=== PATIENT | male | born 1965 | race Caucasian/White ===

== ENCOUNTER 2017-06-13 20:39 | Emergency (ER) | payer OTHER ==
[~2017-06-13] VITALS: Ht 170.2 cm; Wt 83.9 kg
[2017-06-13] MEDS ORDERED: PAIN RELIEVER500 M3 PO (21:12)
[2017-06-13] MEDS ORDERED: NAPROSYN500 MG PO (21:50)
[2017-06-13] MEDS ORDERED: NORCO 5-325 TA1 EACH PO (21:52)
[2017-06-13 22:38] VITALS: BP 180/104
== END 2017-06-13 22:38 | disposition home or self-care (01) ==
LOC: ER 20:39
DX: M25.531 Pain in right wrist (principal); F10.99 Alcohol use, unspecified with unspecified alcohol-induced disorder

== ENCOUNTER 2019-02-10 08:33 | Emergency (ER) | payer OTHER ==
[~2019-02-10] VITALS: Ht 170.2 cm; Wt 81.7 kg
[~2019-02-10 08:33] MED LIST: NAPROSYN500 MG PO; NORCO 5-325 TA1 EACH PO; PAIN RELIEVER500 M3 PO
[2019-02-10 08:59] LABS: ABSOLUTE NEUTROPHILS 6.9 thou/uL (1.4-8.2); BASOPHILS 0.4 % (0.0-2.0); HEMATOCRIT 46.2 % (42.0-52.0); HEMOGLOBIN 15.8 gm/dL (14.0-18.0); MCH 31.8 pg (26.0-34.0); MCHC 34.2 g/dL (28.0-37.0); MCV 92.9 fL (80.0-100.0); PLATELET COUNT 193 thou/uL (150-400); POLYS 77.6 % (36.0-66.0); RBC 4.98 mil/uL (4.50-6.00); RDW 13.9 % (10.5-14.5); WBC 8.8 thou/uL (4.0-11.0)
[2019-02-10 09:13] LABS: CALCIUM 9.3 mg/dL (8.5-10.1); CREATININE 1.1 mg/dL (0.7-1.3); POTASSIUM 3.7 mmol/L (3.5-5.1)
[2019-02-10 09:15] LABS: APTT 24.5 Seconds (24.5-32.8); PROTIME 10.2 Seconds (9.3-11.4)
[2019-02-10 09:19] LABS: ALBUMIN 4.1 g/dL (3.4-5.0); DIRECT BILIRUBIN 0.2 mg/dL (<0.1-0.3); TOTAL BILIRUBIN 1.3 mg/dL (<0.1-1.0)
[2019-02-10 11:03] LABS: URINE BILIRUBIN NEGATIVE (Negative); URINE BLOOD NEGATIVE (Negative); URINE CLARITY CLEAR; URINE COLOR YELLOW; URINE GLUCOSE-RANDOM* 3+ (Negative); URINE KETONES NEGATIVE (Negative); URINE LEUKOCYTES-REFLEX NEGATIVE (Negative); URINE NITRITE-REFLEX NEGATIVE (Negative); URINE PROTEIN (DIPSTICK) NEGATIVE (Negative); URINE SPECIFIC GRAVITY <= 1.005 (1.005-1.035); URINE UROBILINOGEN 0.2 E.U./dl (0.2-1.0)
[2019-02-10 12:13] VITALS: BP 157/67
--- NOTE | 2019-02-11 08:41 | EKG ---
[address] [address] ELECTROCARDIOGRAM REPORT Name: DE CROUCH [facility] [id number] ������������������ Admission: 02/10/19 ������������������ Attend Phys: Discharge: 02/10/19 ������������������ Date of : 67 Report #: [id number] ����������������������������������������������������������������� [id number] THIS REPORT FOR: //name// [facility] ED Test Date: 2019-02-10 Test Time: 08:54:44 Pat Name: DE CROUCH Department: Room: Gender: M Mountain Guide: STEFFI : 1965 Requested By: Lizeth Murray Order Number: [id number] MD: Rivera Chase Measurements Intervals [place] Rate: 77 P: 12 W[place]: 137 QRS: 37 QRSD: 122 T: 29 QT: 412 QTc: 467 Interpretive Statements Sinus rhythm Nonspecific intraventricular conduction delay Minimal ST elevation, anterior leads Baseline wander in lead(s) V2 No previous ECG available for comparison Electronically Signed On 02-11-2019 8:41:14 CDT by Rivera Chase [email or web address] ��������������������������������������������� <ELECTRONICALLY SIGNED> ���������������������������������������� By: Rivera Chase MD ��������������������������������������������� 02/11/19 [id number] Rivera Chase MD /MARYANN
== END 2019-02-10 13:28 | disposition home or self-care (01) ==
LOC: ER 08:33
PROVIDERS: Emergency Medicine
DX: R53.1 Weakness (principal); F80.9 Developmental disorder of speech and language, unspecified; R73.9 Hyperglycemia, unspecified

== ENCOUNTER 2021-01-20 14:02 | Inpatient (IN) | payer OTHER ==
[~2021-01-20] VITALS: Ht 167.6 cm; Wt 75.8 kg
--- NOTE | ~2021-01-20 | HC ---
[facility] [place] [address] CONSULTATION Name: DE CROUCH Room #: 359-P ADM IN M.R.#: [id number] Admission: 01/20/21 Attend Phys: Bladimir Mcbride MD Discharge: Date of : 67 Report #: [id number] THIS REPORT FOR: cc: DUC - No family physician/PCP DUC - No family physician/PCP Jonah Ly MD ~ DATE OF SERVICE: 01/20/2021 HISTORY OF PRESENT ILLNESS: This is a 55-year-old male patient who was discussed with Emergency Room physician multiple times. The patient himself provided some history. The patient is having some intermittent numbness on the right side. There may be some speech and language problem, but the major symptom is paresthesias on the right side. It is fluctuating and became worse and that is why he came to Emergency Room. Initially, he had a CT scan of the head and subsequently had a CT angiography. I called the radiologist, Dr. Macias who read the MRI and discussed with him. He does have a new finding, but is in the vertebral artery. I asked Dr. Murray from Emergency Room to talk to a tertiary care center interventionalist to make sure that they do not think any intervention need to be done. He indicated to me that ____ and they indicated no intervention is needed. I asked them to give a loading dose of Plavix and aspirin and as I understand from them that was given. REVIEW OF SYSTEMS: It looks like this patient has diabetes. Blood pressure is somewhat high, but that is where it should be for the time being. He says his 14-point review of systems is otherwise unremarkable. FAMILY HISTORY: Positive for stroke, but in the later age past medical history is negative for any stroke. SOCIAL HISTORY: He said he used to drink alcohol, but does not do it now except occasionally, he does not smoke. PHYSICAL EXAMINATION: Indicates he is alert, responsive, can follow commands. His speech looks intact. Cranial nerve examination 2-12 is unremarkable. Motor strength looks mostly preserved, but he may be somewhat weak on the right side. Subjectively he says his pinprick is altered, but it is difficult to tell. He does not have any cerebellar sign. I could not look at the patient's fundus. Blood pressure is 148/79, respirations 16, pulse is 66. LABORATORY DATA: Indicated white count of 9.7 and blood sugar of 389. IMPRESSION: 1. Fluctuating weakness, probably because of a lacunar cerebrovascular accident. 2. Vertebral artery pathology, which ____ since last admission is worrisome. It does not look like it is dissection according to radiologist, it is just an [facility] [address] [place] [address] CONSULTATION Name: JAYLONARUNADE Room #: 359-P [facility] IN M.R.#: [id number] Admission: 01/20/21 Attend Phys: Bladimir Mcbride MD Discharge: Date of : 67 Report #: [id number] occlusion. We have to carry out symptomatic treatment until we have to carry out conservative treatment. I asked them to give a loading dose of Plavix as well as aspirin. We just have to watch. I will suggest very tightly controlling the patient's blood sugar underlying that, I will suggest very tightly controlling the patient's blood sugar, but I do not treat the hypertension in this patient until the blood pressure is more than 220, systolic. More than 50 minutes of time was spent taking care of this patient today and majority was spent counseling and coordinating. By: 52 0049 Jonah Ly MD /nt
[2021-01-20 14:05] VITALS: BP 174/65
[2021-01-20 14:41] LABS: ABSOLUTE NEUTROPHILS 7.7 thou/uL (1.4-8.2); BASOPHILS 0.4 % (0.0-2.0); EOSINOPHILS 0.1 % (0.0-3.0); HEMATOCRIT 46.7 % (42.0-52.0); HEMOGLOBIN 15.8 gm/dL (14.0-18.0); LYMPHOCYTES 14.9 % (24.0-44.0); MCH 31.9 pg (26.0-34.0); MCHC 33.8 g/dL (28.0-37.0); MCV 94.2 fL (80.0-100.0); MONOCYTES 4.5 % (1.0-8.0); PLATELET COUNT 186 thou/uL (150-400); POLYS 80.1 % (36.0-66.0); RBC 4.96 mil/uL (4.50-6.00); RDW 13.8 % (10.5-14.5); WBC 9.7 thou/uL (4.0-11.0)
[2021-01-20 14:46] LABS: CALCIUM 9.6 mg/dL (8.5-10.1); POTASSIUM 3.7 mmol/L (3.5-5.1)
[2021-01-20 14:55] LABS: APTT 21.9 Seconds (24.5-32.8); PROTIME 10.9 Seconds (9.3-11.4)
[2021-01-20 14:57] LABS: ALBUMIN 4.1 g/dL (3.4-5.0); DIRECT BILIRUBIN 0.2 mg/dL (<0.1-0.2); TOTAL PROTEIN 8.7 g/dL (6.4-8.2)
[2021-01-20 17:00] LABS: URINE BILIRUBIN NEGATIVE (Negative); URINE BLOOD NEGATIVE (Negative); URINE CLARITY CLEAR; URINE COLOR YELLOW; URINE GLUCOSE-RANDOM* 3+ (Negative); URINE KETONES 2+ (Negative); URINE LEUKOCYTES-REFLEX NEGATIVE (Negative); URINE NITRITE-REFLEX NEGATIVE (Negative); URINE PROTEIN (DIPSTICK) NEGATIVE (Negative); URINE UROBILINOGEN 0.2 E.U./dl (0.2-1.0)
[2021-01-20 19:58] VITALS: BP 148/79
[2021-01-20 20:01] LABS: CHOLESTEROL 267 mg/dL (<200); HDL CHOLESTEROL 46 mg/dL (>40); LDL CHOLESTEROL 193 mg/dL (<100); SERUM ASSESSMENT Clear; TC:HDL 5.8 Ratio (Not establshd); TRIGLYCERIDE 144 mg/dL (<150); VLDL 29 mg/dL (<40)
[2021-01-20 21:06] VITALS: BP 156/77
[2021-01-20 21:15] VITALS: BP 152/57
[2021-01-21 00:35] VITALS: BP 134/55
[2021-01-21 05:06] LABS: CALCIUM 8.8 mg/dL (8.5-10.1); POTASSIUM 3.6 mmol/L (3.5-5.1)
[2021-01-21 05:07] VITALS: BP 146/76
--- NOTE | 2021-01-21 06:59 | EKG ---
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: STEFFI : 1965 Requested By: Lizeth Murray Order Number: [id number] MD: Viktor Hood Measurements Intervals [place] Rate: 61 P: 13 [place]: 160 QRS: 49 QRSD: 116 T: 52 QT: 461 QTc: 465 Interpretive Statements Sinus rhythm Nonspecific intraventricular conduction delay Compared to ECG 02/10/2019 08:54:44 ST (T wave) deviation no longer present Electronically Signed On 01-21-2021 6:59:12 CDT by Viktor Hood [email or web address] <ELECTRONICALLY SIGNED> By: Viktor Hood MD, [facility] 01/21/21 0659 D: [id number] Viktor Hood MD, FACC /EPI
[2021-01-21 07:43] VITALS: BP 151/72
[2021-01-21 08:13] VITALS: BP 189/70
--- NOTE | 2021-01-21 10:16 | 2DMMODE ---
[facility] [place] [address] 2 D/M-MODE ECHOCARDIOGRAM Name: DE CROUCH Room #: 359-P ADM IN M.R.#: [id number] Admission: 01/20/21 Attend Phys: Bladimir Mcbride MD Discharge: Date of : 67 Report #: [id number] THIS REPORT FOR: cc: FAM - No family physician/PCP FAM - No family physician/PCP Kaiden Wilson MD ~ APPROVED REPORT Study performed: 01/21/2021 08:36:20 EXAM: Comprehensive 2D, Doppler, and color-flow Echocardiogram Patient Location: Bedside Status: routine BSA: 1.83 HR: 56 bpm Rhythm: Bradycardia Other Information Study Quality: Good Indications CVA/TIA Diabetes Hypertension/HDD Echo Enhancing Agent Indication: Rule out Shunt Agent(s) / Amount(s) Used: Agitated Saline 7 cc 2D Dimensions RVDd: 27.88 mm IVSd: 9.99 (7-11mm) LVDd: 44.44 mm PWd: 10.28 (7-11mm) Ascending Ao: 32.60 (22-36mm) LVDs: 21.43 (25-40mm) Left Atrium: 40.75 (27-40mm) Aortic Root: 31.97 mm IVC: 20.00 mm Volumes Left Atrial Volume (Systole) Single Plane 4CH: 42.66 mL Single Plane 2CH: 51.31 mL LA ESV Index: 27.00 mL/m2 [facility] [address] [place] [address] 2 D/M-MODE ECHOCARDIOGRAM Name: MIKOCARINE Room #: 359-P ADM IN M.R.#: [id number] Admission: 01/20/21 Attend Phys: Bladimir Mcbride, Discharge: Date of : 67 Report #: [id number] Aortic Valve AoV Peak Jostin.: 1.81 m/s AO Peak Gr.: 13.08 mmHg LVOT Max P.98 mmHg LVOT Max V: 0.86 m/s Mitral Valve E/A Ratio: 1.1 MV Decel. Time: 182.20 ms MV E Max Jostin.: 0.72 m/s MV A Jostin.: 0.65 m/s MV PHT: 52.84 ms IVRT: 83.04 ms Pulmonary Valve PV Peak Jostin.: 0.76 m/s PV Peak Gr.: 2.30 mmHg Pulmonary Vein P Vein A: 0.26 m/s P Vein A Dur.: 120.0 msec Tricuspid Valve TR Peak Jostin.: 1.72 m/s TR Peak Gr.: 11.81 mmHg Left Ventricle The left ventricle is normal size. There is normal LV segmental wall motion. There is normal left ventricular wall thickness. The left ventricular systolic function is normal. The left ventricular ejection fraction is within the normal range. LVEF is 55-60%. Grade II - pseudonormal filling dynamics. Right Ventricle The right ventricle is normal size. The right ventricular systolic function is normal. Atria The left atrium size is normal. Injection of bubbles documented no interatrial shunt. The right atrium size is normal. Aortic Valve Aortic valve is mildly calcified. No aortic regurgitation is present. There is no aortic valvular stenosis. Mitral Valve The mitral valve is normal in structure. Mild mitral regurgitation. [facility] [place] [address] [place] [address] 2 D/M-MODE ECHOCARDIOGRAM Name: JAYLONARUNADE Room #: 359-P ADM IN M.R.#: [id number] Admission: 01/20/21 Attend Phys: Bladimir Mcbride, Discharge: Date of : 67 Report #: [id number] No evidence of mitral valve stenosis. Tricuspid Valve The tricuspid valve is normal in structure. Trace tricuspid regurgitation. Unable to assess PA pressure. Pulmonic Valve The pulmonary valve is normal in structure. There is no pulmonic valvular regurgitation. Great Vessels The aortic root is normal in size. IVC is normal in size and collapses >50% with inspiration. Pericardium There is no pericardial effusion. <Conclusion> The left ventricle is normal size. There is normal left ventricular wall thickness. The left ventricular systolic function is normal. The right ventricle is normal size. The left atrium size is normal. Injection of bubbles documented no interatrial shunt. Aortic valve is mildly calcified. Mild mitral regurgitation. <ELECTRONICALLY SIGNED> By: Kaiden Wilson MD 01/21/21 1016 [id number] [id number] Kaiden Wilson MD /INF
[2021-01-21 15:49] VITALS: BP 150/86
[2021-01-21 19:51] VITALS: BP 169/69
[2021-01-22 03:46] VITALS: BP 142/72
[2021-01-22 07:54] VITALS: BP 126/69
[2021-01-22 10:20] LABS: HEMATOCRIT 47.4 % (42.0-52.0); HEMOGLOBIN 16.1 gm/dL (14.0-18.0); MCH 32.2 pg (26.0-34.0); MCV 94.8 fL (80.0-100.0); RDW 13.7 % (10.5-14.5); WBC 5.9 thou/uL (4.0-11.0)
[2021-01-22 10:37] LABS: CALCIUM 8.9 mg/dL (8.5-10.1); CREATININE 1.1 mg/dL (0.7-1.3); MAGNESIUM 1.8 mg/dL (1.8-2.4); POTASSIUM 3.8 mmol/L (3.5-5.1)
[2021-01-22 16:23] VITALS: BP 125/52
[2021-01-22 19:20] VITALS: BP 185/77
[2021-01-23 03:53] VITALS: BP 149/79
[2021-01-23 04:07] LABS: IgA 395 mg/dL (90-386); IgG 1176 mg/dL (603-1613); IgM 52 mg/dL (20-172)
[2021-01-23 05:09] LABS: HEMATOCRIT 46.9 % (42.0-52.0); HEMOGLOBIN 15.6 gm/dL (14.0-18.0); MCH 31.5 pg (26.0-34.0); MCHC 33.3 g/dL (28.0-37.0); MCV 94.5 fL (80.0-100.0); RBC 4.96 mil/uL (4.50-6.00); RDW 13.7 % (10.5-14.5); WBC 8.1 thou/uL (4.0-11.0)
[2021-01-23 05:51] LABS: CALCIUM 9.2 mg/dL (8.5-10.1); CREATININE 0.9 mg/dL (0.7-1.3); MAGNESIUM 1.9 mg/dL (1.8-2.4); POTASSIUM 3.9 mmol/L (3.5-5.1)
[2021-01-23 07:38] VITALS: BP 140/72
[2021-01-23 13:08] LABS: ANA INTERPRETATION Negative (Negative)
[2021-01-23 15:46] VITALS: BP 130/52
[2021-01-23 21:00] VITALS: BP 140/63
[2021-01-24 04:39] VITALS: BP 121/68
[2021-01-24 05:07] LABS: HEMATOCRIT 46.2 % (42.0-52.0); HEMOGLOBIN 15.6 gm/dL (14.0-18.0); MCH 31.7 pg (26.0-34.0); MCHC 33.8 g/dL (28.0-37.0); MCV 93.8 fL (80.0-100.0); RBC 4.93 mil/uL (4.50-6.00); RDW 13.7 % (10.5-14.5); WBC 11.2 thou/uL (4.0-11.0)
[2021-01-24 05:29] LABS: CALCIUM 9.4 mg/dL (8.5-10.1); CREATININE 0.9 mg/dL (0.7-1.3); POTASSIUM 3.3 mmol/L (3.5-5.1)
[2021-01-24 07:41] VITALS: BP 138/82
[2021-01-24 10:31] LABS: PROTIME 10.3 Seconds (9.3-11.4)
[2021-01-24] MEDS ORDERED: LIPITOR40 MG PO (14:25)
[2021-01-24] MEDS ORDERED: SYNTHROID125 MC1 PO (14:26)
[2021-01-24] MEDS ORDERED: GLUCOTROL5 MG PO (14:26)
[2021-01-24] MEDS ORDERED: NORVASC5 MG PO (14:26)
[2021-01-24] MEDS ORDERED: METFORMIN HCL500 MG PO (14:27)
[2021-01-24 16:16] VITALS: BP 149/79
== END 2021-01-24 18:05 | DRG 65 ==
LOC: ER 14:02 → 3W 18:52 → EROBS 18:52 → 3W 21:08
PROVIDERS: Emergency Medicine; Nurse Practitioner Family; Psychiatry & Neurology Neuromuscular Medicine; ADMIT Internal Medicine; ATTEND Internal Medicine
DX: I63.9 Cerebral infarction, unspecified (principal); G81.91 Hemiplegia, unspecified affecting right dominant side; E11.9 Type 2 diabetes mellitus without complications; I10 Essential (primary) hypertension; G93.89 Other specified disorders of brain; E78.5 Hyperlipidemia, unspecified; Z20.822 Contact with and (suspected) exposure to COVID-19; M48.02 Spinal stenosis, cervical region; I65.03 Occlusion and stenosis of bilateral vertebral arteries; Z83.3 Family history of diabetes mellitus; Z82.49 Family history of ischemic heart disease and other diseases of the circulatory system; Z82.3 Family history of stroke; Z91.14 Patient's other noncompliance with medication regimen
CPT/HCPCS: 10879

== ENCOUNTER 2021-01-24 13:28 | Inpatient (IN) | payer OTHER ==
[~2021-01-24] VITALS: Ht 167.6 cm; Wt 74.8 kg
[2021-01-24] MEDS ORDERED: LIPITOR40 MG PO (14:25)
[2021-01-24] MEDS ORDERED: SYNTHROID125 MC1 PO (14:26)
[2021-01-24] MEDS ORDERED: NORVASC5 MG PO (14:26)
[2021-01-24] MEDS ORDERED: GLUCOTROL5 MG PO (14:26)
[2021-01-24] MEDS ORDERED: METFORMIN HCL500 MG PO (14:27)
--- NOTE | 2021-01-24 18:20 | NUR ---
PT CAME IN FROM [facility] AT 1820 ON A WC WITH A [facility] STAFF AND FAMILY MEMBERS. ALERT AND ORIENTATED X 3. ABLE TO CONVERSE IN IRANIAN APPROPRIATELY. DENIES ANY PAIN. DOES REPORT NUMBNESS AND TINGLING IN THE R SIDE OF THE BODY. DOES REPORT NUMBNESS AND TINGLING IN THE R SIDED. CAME IN WITH CVA WITH R SIDED WEAKNESS. HAND NURSERY ATTENDANT IS MODERATE. ASSESSMENT AND HISTORY DONE AND PT ABLE TO ANSWER QUESTIONS APPROPRIATELY. VSS. METFORMIN NOT GIVEN DUE TO PT HAD A MRI DONE YESTERDAY AND PER PROTOCOL TO HOLD METFORMIN FOR 48 HOURS. INSULIN WAS GIVEN AT DINNER TIME. APPETITE GOOD. CALL LIGHT WITHIN REACH. ALL QUESTIONS AND CONCERNS ANSWERED.
[2021-01-24 20:06] VITALS: BP 149/78
--- NOTE | 2021-01-25 02:48 | NUR ---
UP TO TOILET WITH GAIT BELT, WALKER, AND CONTACT GUARD ASSIST. NO BM, FLATUS ONLY WITH VOIDING. PLEASANT AND TAKING PILL WITH SIP OF WATER. WELCOMED TO REHAB.
[2021-01-25 04:43] LABS: CREATININE 0.9 mg/dL (0.7-1.3); MAGNESIUM 1.7 mg/dL (1.8-2.4); POTASSIUM 3.9 mmol/L (3.5-5.1)
[2021-01-25 04:44] LABS: HEMATOCRIT 46.7 % (42.0-52.0); HEMOGLOBIN 15.9 gm/dL (14.0-18.0); MCH 32.1 pg (26.0-34.0); MCHC 34.2 g/dL (28.0-37.0); MCV 93.8 fL (80.0-100.0); RBC 4.97 mil/uL (4.50-6.00); RDW 13.5 % (10.5-14.5); WBC 9.3 thou/uL (4.0-11.0)
[2021-01-25 08:22] VITALS: BP 140/66
--- NOTE | 2021-01-25 11:09 | NUR ---
ASSUMED CARE AT 0700. PATIENT IS ALERT AND ORIENTED X4. PATIENT HAS RIGHT SIDED WEAKNESS. PATIENT BLOCK CAPTAIN ON RIGHT WEAK. LUNGS ARE CLEAR AND DEMINISHED. ABD IS SOFT WITH BSX4. VOIDING YASEMIN COLORED URINE PER URINAL. PATIENT IS PLEASANT AND COOPERTATIVE. FALL AND SAFETY PROTOCOLS IN PLACE. DENIES PAIN AT THIS TIME. CONTINUES TO PROGRESS SLOWLY TOWARDS D/C GOALS. WILL CONTINUE TO MONITER. UP WITH GAIT BELT AND WALKER. LABS WNL. WILL CONTINUE TO MONITER.
[2021-01-25 19:18] VITALS: BP 154/64
--- NOTE | 2021-01-25 23:46 | NUR ---
PT ALERT AND ORIENTED X 4. RIGHT SIDED WEAKNESS. PT TOOK HS MEDS WITH WATER WITHOUT DIFFICULTY. BLOOD SUGAR 209 AT HS. INSULIN GIVEN ORDERED. PT DENIES PAIN OR DISCOMFORT. BED ALARM ON FOR SAFETY. PT APPEARS TO BE SLEEPING ON HOURLY ROUNDS.
[2021-01-26 07:29] VITALS: BP 142/79
--- NOTE | 2021-01-26 13:14 | NUR ---
ASSUMED CARE AT 0700. SLEPT FAIR. ALERT AND ORIENTATED X 3. DENIES ANY PAIN.DOES REPORT NUMBNESS AND TINGLING IN R SIDE. 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 APPETITE FAIR, BLOOD SUGAR HAS BEEN IN THE 200S, DR NAPOLES INCREASED TO MOD SSI AND ADDED LANTUS 10 UNITS AT HS. PT ALSO HAD NOT HAVE BM SINCE 01/22, DR NAPOLES AWARE. SENNA AND COLACE GIVEN. BOWEL SOUNDS HYPOACTIVE. DENIES ANY NAUSEA. DIURESING ADEQ. UP WITH SBA TO CHAIR.
[2021-01-26 19:20] VITALS: BP 157/89
--- NOTE | 2021-01-27 00:48 | NUR ---
PT ALERT AND ORIENTED X 4. RIGHT SIDED WEAKNESS. BLOOD SUGAR 230 AT HS. STARTED ON LANTUS INSULIN AND SLIDING SCALE LISPRO ALSO GIVEN. SNACK GIVEN. PT DENIES PAIN OR DISCOMFORT. BED ALARM ON FOR SAFETY. PT APPEARS TO BE SLEEPING ON HOURLY ROUNDS.
[2021-01-27 05:48] LABS: HEMATOCRIT 46.4 % (42.0-52.0); HEMOGLOBIN 15.5 gm/dL (14.0-18.0); MCH 31.4 pg (26.0-34.0); MCHC 33.4 g/dL (28.0-37.0); MCV 94.2 fL (80.0-100.0); RBC 4.92 mil/uL (4.50-6.00); RDW 13.4 % (10.5-14.5); WBC 9.6 thou/uL (4.0-11.0)
[2021-01-27 05:58] LABS: CALCIUM 9.6 mg/dL (8.5-10.1); MAGNESIUM 1.7 mg/dL (1.8-2.4); POTASSIUM 3.7 mmol/L (3.5-5.1)
[2021-01-27 07:05] VITALS: BP 156/80
--- NOTE | 2021-01-27 07:45 | NUR ---
chart review. cm tried to visit with sherry, unable to rt visit with him rt breakfast and getting ready to work with therapy. he lives in apartment, 12 steps to enter, no steps inside. no dme, no rehab or hh in past. no pcp. 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 medassist notified to assist with medicaid, social security disability prior to coming up to acute rehab.
--- NOTE | 2021-01-27 16:57 | NUR ---
ADM MAG 400MG PO X1 PER ORDERS.
--- NOTE | 2021-01-27 17:00 | NUR ---
PT WORKED WITH THERAPY TODAY USING WALKER. PT STATED HE STILL HAS NUMBNESS TO RT HAND. PT ABLE TO TAKE MEDS WHOLE WITH THIN WATER. PT PLEASANT WITH NURSES AND STAFF.
[2021-01-27 19:06] VITALS: BP 151/81
--- NOTE | 2021-01-28 01:10 | NUR ---
ASSUMED PT CARE AT 1900.PT DENIED PAIN SO FAR.BG MONITORED,LANTUS GIVEN.URINAL AT BEDSIDE.PER REPORT,PT HAD A BM DURING THE DAY,NONE SO FAR THIS SHIFT.MEDS WHOLE WITH THIN LIQUIDS,BRANDON WELL.CALL LIGHT WITHIN REACH.
[2021-01-28 07:15] VITALS: BP 145/77
--- NOTE | 2021-01-28 11:18 | NUR ---
ASSUMED CARE AT 0700. SLEPT FAIR. ALERT AND ORIENTATED X 3. DENIES ANY PAIN. APPETITE FAIRLY GOOD. ACCUCHECKS DONE AND TREATED WITH INSULIN AND ORAL MEDS. VON HOME BASED ASSISTANT WANTS PT EDUCATION ON ACCUCHECKS, INSULIN AND DIABETIC DIET. CHOCOLATE COATER INFORMED ON FOOD CHOICES AND SELECTION. PT HAD COUPLE OF LOOSE BM YESTERDAY AND STOOL REGIMEN HELD TODAY. DIURESING WELL. PARTICIPATING WITH THERAPY. UP WITH SBA WITH WALKER.
--- NOTE | 2021-01-28 12:43 | NUR ---
team meeting, recommendation: possible will be able to stay with daughter. possible video swallow study wednesday. need assist with pills and bills. will need to assist with medication, will need insulin and dm education. safety net packet provided, kyler hoffman and ksenia fww. dc 23.
[2021-01-28 20:03] VITALS: BP 144/74
--- NOTE | 2021-01-29 01:13 | NUR ---
PT ALERT AND ORIENTED X 4. AMB TO BR WITH WALKER AND ASSIST X 1. RIGHT SIDED WEAKNESS. BLOOD SUGAR 135 AT HS. ONLY GAVE 2 UNITS LISPRO INSULIN. PT DENIES PAIN OR DISCOMFORT. BED ALARM ON FOR SAFETY. PT APPEARS TO BE SLEEPING ON HOURLY ROUNDS.
[2021-01-29 07:15] VITALS: BP 140/71
--- NOTE | 2021-01-29 08:51 | NUR ---
PT SITTING IN CHAIR AFTER THERAPY. DID ASSIST PT TO BATHROOM. PT ABLE TO RAISE UP OUT OF CHAIR WITHOUT ANY ASSISTANCE. PT USES WALKER TO BATHROOM AND GAIT BELT. PT DENIES ANY PAIN. PT GETTING A SWALLOW STUDY TODAY. PT TAKES MEDS WHOLE WITH THIN WATER WITHOUT ANY ISSUES. 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 PT STATED BEFORE THIS HE DIDN'T TAKE ANY MEDICATIONS.
--- NOTE | 2021-01-29 09:13 | NUR ---
PT RECIEVED COLACE 100MG AND SENNECOT FOR COMPLAINTS OF CONSTIPATION.
--- NOTE | 2021-01-29 16:45 | NUR ---
PT WAS ASSISTED TO BATHROOM. PT CALLED FOR HELP. ASSISTED PT BACK TO CHAIR. PT STATED HE HAD A GOOD BM. PT USING WALKER FAITHFULLY.
[2021-01-29 19:25] VITALS: BP 158/70
--- NOTE | 2021-01-30 00:09 | NUR ---
PT ALERT AND ORIENTED X 4. AMB TO BR WITH WALKER AND ASSIST X 1. RIGHT SIDED WEAKNESS. PT DENIES PAIN OR DISCOMFORT. BED ALARM ON FOR SAFETY. PT APPEARS TO BE SLEEPING ON HOURLY ROUNDS.
[2021-01-30 08:00] VITALS: BP 140/77
[2021-01-30] MEDS ORDERED: LIPITOR40 MG PO (10:42)
[2021-01-30] MEDS ORDERED: NORVASC5 MG PO (10:42)
[2021-01-30] MEDS ORDERED: GLUCOTROL5 MG PO (10:42)
[2021-01-30] MEDS ORDERED: METFORMIN HCL500 MG PO ×2 (10:42→12:10)
[2021-01-30] MEDS ORDERED: PLAVIX 75 MG TA75 M1 PO (10:42)
[2021-01-30] MEDS ORDERED: BAYER CHEWABLE81 MG PO (10:42)
--- NOTE | 2021-01-30 11:00 | NUR ---
bedside nurse asked if he could be dc today, his daughter is asking. cm education that rncm doesnt make or change dc dates, that has to go through MD. provider plus will deliver voched fww for dc on 01/31/21
--- NOTE | 2021-01-30 14:45 | NUR ---
ASSUMED CARE AT 0700. A&OX4. DENIES PAIN. REPORTS EPISODE OF DIARREAH OVERNIGHT. RIGHT SIDED HEMIPARESIS NOTED. ASSIT OF 1 WITH GAITBELT AND WALKER W/ TRASFERS AND ABULATION. OK TO DISCHARGE LATER THIS EVENING. DIABETES EDUCATION ABOUT FOOD CHOICES REINFORCED DURING ROUNDS.
[2021-01-30 16:07] VITALS: BP 140/77
--- NOTE | 2021-02-03 12:53 | H ---
[facility] [place] [address] HISTORY AND PHYSICAL Name: DE CROUCH Room #: 511-P [facility] IN M.R.#: [id number] Admission: 01/24/21 Attend Phys: Jalen Hill MD Discharge: 01/30/21 Date of : 67 Report #: [id number] THIS REPORT FOR: cc: DUC - No family physician/PCP FAM - No family physician/PCP Jalen Hill MD ~ DATE OF SERVICE: 01/24/2021 HISTORY AND PHYSICAL/POSTADMISSION PHYSICIAN EVALUATION HISTORY OF PRESENT ILLNESS: The patient is a 55-year-old male, who was admitted for acute in-hospital inpatient rehabilitation. The patient was originally admitted to [facility] on 01/20/2021 with right sided numbness, tingling, and weakness. He had slurred speech, blurred vision, and dizziness. 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 He is not felt to be a candidate for TPA. 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 The patient has had significant functional decline with his right hemiparesis and has now been admitted for acute in-hospital inpatient rehabilitation. PAST MEDICAL HISTORY: Includes hypertension and diabetes mellitus type 2. He stopped taking medications over 10-15 years ago. MEDICATIONS: Please see the full medication listing. ALLERGIES: No known drug allergies. SOCIAL HISTORY: The patient is planning on staying with his 3 daughters in [place], [place]. There are no stairs. There work different hours. REVIEW OF SYSTEMS: No current complaints of chest pain, shortness of breath or abdominal discomfort. PHYSICAL EXAMINATION: GENERAL: A 55-year-old male, in no obvious distress. VITAL SIGNS: Temperature 36.6, pulse 68, respirations 17, blood pressure 140/66. NEUROLOGIC: He is alert, pleasant. HEENT: Reveals mild right depressed nasolabial fold, otherwise facies appear symmetric. CHEST: Sounded clear to auscultation. CARDIAC: Regular rate and rhythm. ABDOMEN: Bowel sounds positive, nontender. He is of rather slender build. He is a muscular short-statured male. GENITOURINARY AND RECTAL: Deferred. [facility] [address] [place] [address] HISTORY AND PHYSICAL Name: DE CROUCH Room #: 511-P [facility] IN M.R.#: [id number] Admission: 01/24/21 Attend Phys: Jalen Hill MD Discharge: 01/30/21 Date of : 67 Report #: [id number] NEUROMUSCULOSKELETAL: He has functional range of motion and strength of the left upper and left lower extremity. The right upper extremity revealed strength of grade 3+/5, proximal and distal, and right lower extremity is a grade 3+ to 4-/5. Sensation slightly decreased right lower extremity to simultaneous stimulation. Tone appeared to be reasonably intact, it might be slightly decreased in the right upper and lower extremity. He is transferring with min assist. Gait is min assist for short distances with a front-wheeled walker. He has definite decreased coordination with clumsiness of the right upper extremity. ASSESSMENT: A 55-year-old male with the following problems: 1. Left medullary infarct. 2. Right hemiparesis. 3. Mild dysarthria. 4. History of hypertension. 5. Diabetes mellitus type 2, was not taking his medication. PLAN: The patient is admitted for acute in-hospital inpatient rehabilitation. 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 As far as risks of complications, these include his above noted comorbidities. Initial plan of care involves the interdisciplinary acute inpatient rehabilitation program. Prognosis is reasonably good with estimated length of stay probably 7-14 days depending progress. Potential barriers would include his above noted comorbidities and decreased functional status. <ELECTRONICALLY SIGNED> By: Jalen Hill MD 02/03/21 1253 1123 1204 Jalen Hill MD /nt
--- NOTE | 2021-02-03 12:53 | PLAN ---
[facility] [place] [address] REHAB UNIT PLAN OF CARE Name: DE CROUCH Room #: 511-P DIS IN M.R.#: [id number] Admission: 01/24/21 Attend Phys: Jalen Hill MD Discharge: 01/30/21 Date of : 67 Report #: [id number] THIS REPORT FOR: cc: FAM - No family physician/PCP FAM - No family physician/PCP Jalen Hill MD ~ DATE OF SERVICE: 01/27/2021 PROGRESS NOTE/OVERALL PLAN OF CARE SUBJECTIVE: The patient was seen back today in followup. He is in no distress. Last recorded temperature 98.1, pulse 77, respirations 20, blood pressure 157/89. The patient is alert, pleasant. He is in good spirits. He appears to be moving that right upper extremity better. I would grade him more of a 4-/5 with improving fine finger dexterity. He cannot touch the fingertips, thumb to fingertips of all digits on the right hand. He is moving the right leg better as well at least a grade 4/5 to 4-/5. Transfers have improved to contact guard and is now ambulating 170 feet without a device. He does need some assistance as noted. In occupational therapy, lower body dressing is mod assist; upper body dressing is min assist. He is noted to have gqbe-[id number]-ghtgnbnu cognitive deficits with mild memory deficits. ASSESSMENT: A 55-year-old male with the following problem list: 1. Left medullary infarct. 2. Right hemiparesis. 3. Mild dysarthria. 4. History of hypertension. 5. Diabetes mellitus type 2. PLAN: The overall plan of care is based on the preadmission screen and information garnered from therapy assessments. 1. Estimated length of stay should be fairly short, probably within the next 5-10 days. 2. Medical prognosis is reasonably good. 3. Anticipated interventions includes the interdisciplinary acute inpatient rehabilitation program. 4. Anticipated functional outcomes would be for the patient to become modified independent with transfers, mobility, ADLs and improved cognition, so that he can return back to the home setting. 5. Discharge destination would be to go to his daughter's house in [place], [place]. 6. Expected therapy by discipline includes PT, OT and speech 1 hour per day each five days a week throughout the duration of the acute [place] [address] REHAB UNIT PLAN OF CARE Name: DE CROUCH Room #: 511-P DIS IN [facility].#: [id number] Admission: 01/24/21 Attend Phys: Jalen Hill MD Discharge: 01/30/21 Date of : 67 Report #: [id number] The patient's prognosis for significant practical improvement within a reasonable period of time appears good. Given the patient's complex medical condition and risk of further medical complication, rehabilitation services could not be safely provided at a lower level of care such as a longterm facility. <ELECTRONICALLY SIGNED> By: Jalen Hill MD 02/03/21 1253 1053 1226 Jalen Hill MD /[facility]
== END 2021-01-30 16:30 | disposition home or self-care (01) | DRG 56 ==
PROVIDERS: Internal Medicine; ADMIT Physical Medicine & Rehabilitation; ATTEND Physical Medicine & Rehabilitation
DX: I69.351 Hemiplegia and hemiparesis following cerebral infarction affecting right dominant side (principal); I63.9 Cerebral infarction, unspecified; I10 Essential (primary) hypertension; E11.9 Type 2 diabetes mellitus without complications; E78.5 Hyperlipidemia, unspecified; E03.9 Hypothyroidism, unspecified; G62.9 Polyneuropathy, unspecified; G93.89 Other specified disorders of brain; Z87.891 Personal history of nicotine dependence; I69.392 Facial weakness following cerebral infarction; I69.322 Dysarthria following cerebral infarction; Z91.14 Patient's other noncompliance with medication regimen; Z79.899 Other long term (current) drug therapy; Z79.84 Long term (current) use of oral hypoglycemic drugs
CPT/HCPCS: 10112